=== PATIENT | female | born 1955 | race Caucasian/White ===

== ENCOUNTER 2022-04-01 08:28 | Inpatient (IN) | payer OTHER ==
[2022-03-26 09:56] LABS: BASOPHILS # (AUTO) 0.1 X10'3 (0-0.2); BASOPHILS % (AUTO) 0.7 % (0-1); EOSINOPHILS # (AUTO) 0.1 X10'3 (0-0.9); EOSINOPHILS % (AUTO) 1.6 % (0-6); LYMPHOCYTES % (AUTO) 25.5 % (21-51); MEAN CORPUSCULAR HGB CONC 33.7 g/dL (33.0-36.5); MEAN CORPUSCULAR VOLUME 88.9 FL (78-98); MEAN PLATELET VOLUME 7.1 FL (7.4-10.4); MONOCYTES # (AUTO) 0.5 X10'3 (0-0.9); MONOCYTES % (AUTO) 6.6 % (2-12); NEUTROPHILS # (AUTO) 5.2 X10'3 (1.8-7.7); NEUTROPHILS % (AUTO) 65.6 % (42-75); PRE OP HEMATOCRIT 41.6 % (35.0-45.0); PRE OP PLATELET COUNT 316 X10'3 (140-440); RED BLOOD COUNT 4.68 X10'6 (4.20-5.60); RED CELL DISTRIBUTION WIDTH 13.6 % (11.5-14.5)
[2022-03-26 10:29] LABS: ALBUMIN 3.9 G/DL (3.4-5.0); ALKALINE PHOSPHATASE 67 IU/L (46-116); BLOOD UREA NITROGEN 15 MG/DL (7-18); BUN/CREATININE RATIO 16.3 (6.6-38.0); CALCIUM 8.9 MG/DL (8.5-10.1); CHLORIDE 106 MMOL/L (99-107); CREATININE 0.92 MG/DL (0.40-0.90); PRE OP ALT 30 U/L (30-65); PRE OP ANION GAP 11 (8-16); PRE OP AST 23 U/L (10-37); PRE OP BILIRUB, TOTAL 0.3 MG/DL (0.0-1.0); PRE OP GLUCOSE 92 MG/DL (70-104); PRE OP POTASSIUM 4.4 MMOL/L (3.4-5.1); PRE OP SODIUM 140 MMOL/L (135-145); TOTAL PROTEIN 7.7 G/DL (6.4-8.2); eGFR 61 ML/MIN
[2022-04-01] VITALS (21 sets, daily range): BP systolic 90–121; BP diastolic 45–81
[~2022-04-01] VITALS: Ht 162.6 cm; Wt 96.7 kg
[~2022-04-01 08:28] MED LIST: CHOL400T14 PO; CYAN500T71 PO; LEVO100T9 PO; acetaminophen 325mg tablet PO ONE; ceFAZolin inj. 2,000 MG in dextrose 5%-water 100 ML IV ONE; celeCOXIB 100mg capsule PO ONE; famotidine 20mg tablet PO ONE; gabapentin 300mg capsule PO ONE; metoclopramide 5 mg/ml inj IV ONE; oxyCODONE SR 10mg (sust. release) tab -2 tabs (20mg) PO ONE; oxyCODONE SR 10mg (sust. release) tab PO ONE; tranexamic acid inj. 1,000 MG in normal saline 100ml IV soln 90 ML IV ONE; vancomycin 1,500 MG in NS 300ml IV soln IV ONE
--- NOTE | 2022-04-01 08:30 | NUR ---
PT CSM INTACT BILATERALLY, + PULSES, PT ABLE TO COMPLETE SHOWERS, NO OINTMENT REQUIRED, ABLE TO VIEW INTERNET ORTHO INFO.
[2022-04-01] MEDS: ringers solution, lacted 1,000 ML IV SCH ×2 (08:52→13:35)
[2022-04-01] MEDS ORDERED: MIDAZolam 1 MG/ML 5ML VIAL ONE (09:04)
[2022-04-01] MEDS ORDERED: propofol inj 0 ML IV ONE (09:04)
[2022-04-01] MEDS ORDERED: fentaNYL/PF 50MCG/1 ML 2ML syringe ONE (09:04)
[2022-04-01] MEDS ORDERED: diphenhydrAMINE 25mg capsule PO PRN ×2 (09:20)
[2022-04-01] MEDS ORDERED: magnesium hydroxide 30ml (MOM) UD suspension PO PRN (09:20)
[2022-04-01] MEDS ORDERED: HYDROmorphone inj. 0.5 MG/0.5 ML DISP.SYRIN IV PRN (09:20)
[2022-04-01] MEDS ORDERED: HYDROmorphone 1 mg/ml syringe IV PRN (09:20)
[2022-04-01] MEDS ORDERED: acetaminophen 325mg tablet PO PRN (09:20)
[2022-04-01] MEDS ORDERED: naloxone 0.4 mg/ml inj IV PRN (09:20)
[2022-04-01] MEDS ORDERED: bisacodyl 10mg suppository rectal RC PRN (09:20)
[2022-04-01] MEDS ORDERED: ROPIVAcaine 0.5% (5mg/ml) 30ml vial ONE (09:56)
[2022-04-01] MEDS ORDERED: meperidine/PF 25mg/ml syringe IV PRN ×3 (10:05)
[2022-04-01] MEDS ORDERED: ROPIVAcaine 0.2%/PF PUMP/bolus 545 ML ADDCANAL SCH (10:05)
[2022-04-01] MEDS ORDERED: morphine 4 MG/ML inj SYRINge IV PRN (10:05)
[2022-04-01] MEDS ORDERED: morphine 2 MG/ML inj. syringe IV PRN (10:05)
[2022-04-01] MEDS ORDERED: ROPIVAcaine 0.2% (10 MG/5 ML) BOLUS INJECTION ADDCANAL PRN (10:05)
[2022-04-01] MEDS ORDERED: ringers solution, lacted 1,000 ML IV SCH (10:05)
[2022-04-01] MEDS ORDERED: ondansetron/PF 4mg/2ml inj IV PRN (10:05)
[2022-04-01] MEDS ORDERED: proCHLORperazine 10 MG/2 ml inj IV PRN (10:05)
[2022-04-01] MEDS ORDERED: ondansetron/PF 4mg/2ml inj ONE (10:12)
[2022-04-01] MEDS ORDERED: cloNIDine hcl/PF 100mcg/ml inj IJ ONE (10:12)
[2022-04-01] MEDS ORDERED: epiNEPHrine 1 mg/ml inj IM ONE (10:13)
[2022-04-01] MEDS ORDERED: ketorolac trometh. 30mg/ml inj. IM ONE (10:14)
[2022-04-01] MEDS ORDERED: vancomycin 1,000mg inj IVT ONE (10:16)
--- NOTE | 2022-04-01 11:09 | NUR ---
Received from OR via BED, accompanied by Anesthesiologist and report given by Anesthesiologist. PATIENT WAKING UP, NO S/S OF PAIN, V/S WNL, SCD ON, 18G TO LOLI PIEDRA drsg to RIGHT KNEE CDI with ON Q BALL AT 2ML/HR. Addendum: 04/01/22 at 1649 by Denilson El RN THIS PREVIOUS NOTE IS INACCURATE AND PLEASE IGNORE IT.
--- NOTE | 2022-04-01 11:09 | NUR ---
Received from OR via BED, accompanied by Anesthesiologist and report given by DR. PHELPS Anesthesiologist. PATIENT WAKING UP, NO S/S OF PAIN, V/S WNL, SCD ON, 20G TO LOLI PIEDRA drsg to LEFT KNEE CDI. Addendum: 04/01/22 at 1137 by Denilson El RN Amended: Links added.
[2022-04-01] MEDS ORDERED: calcium carbonate 500mg chew tablet PO ONE (12:30)
--- NOTE | 2022-04-01 12:39 | NUR ---
PATIENT HAS MET ALL CRITERIA FOR TRANSFER TO ORTHO FLOOR. VSS. DRESSINGS INTACT. BED LOW, CALL LIGHT PRESENT AND 2 RAILS UP. RN PRESENT TO ACCEPT CARE OF PATIENT AND REPORT HAS BEEN CALLED. ALL QUESTIONS ANSWERED TO ACCEPTING RN. Addendum: 04/01/22 at 1245 by Denilson El RN Amended: Links added.
--- NOTE | 2022-04-01 12:45 | NUR ---
Received patient to room 4012B via bed accompanied by x2 transport analyst. Patient alert and oriented in no apparent acute distress and denies pain or discomfort at this time. Patient has left knee wrap on with cool powder pack in place. LOLI dressing CDI. ONQ ball @ 2ml/hr with dressing cdi. Patient educated on use of ONQ ball. Patient oriented to room and call light. Call light placed within patient's reach, x2 bed rails up, bed low and locked, spouse at bedside. Post op vitals initiated and WNL. Will continue to monitor.
[2022-04-01] MEDS: gabapentin 300mg capsule PO SCH ×2 (13:06→20:15)
[2022-04-01] MEDS: oxyCODONE/APAP 10/325mg tablet PO PRN ×2 (13:56→19:16)
[2022-04-01] MEDS: cefazolin/dext.iso 2gm/100ml 100 ML IV SCH ×2 (15:22→23:48)
[2022-04-01] MEDS ORDERED: tranexamic acid inj. 1,000 MG in normal saline 100ml IV soln 90 ML IV ONE (16:00)
[2022-04-01] MEDS: potassium cl 20mEq in 1/2 NS 1,000 ML IV SCH ×2 (17:17→17:20)
--- NOTE | 2022-04-01 18:35 | NUR ---
Patient in room ORTHO 4012. I have received report from HAKEEM Avila and had the opportunity to ask questions and assume patient care.
--- NOTE | 2022-04-01 18:42 | NUR ---
Problems reprioritized. Patient report given, questions answered & plan of care reviewed with HAKEEM Woo.
[2022-04-01] MEDS ORDERED: VANCOMYCIN 1,500MG inj. 1,500 MG in dextrose 5% water 500ml 300 ML IV ONE (20:00)
[2022-04-01] MEDS: ascorbic acid 500mg tablet PO SCH (20:16)
[2022-04-01] MEDS ORDERED: sennosides 8.6mg tablet PO SCH (21:00)
[2022-04-02] MEDS: oxyCODONE/APAP 10/325mg tablet PO PRN ×4 (00:12→08:38)
[2022-04-02] MEDS: ondansetron/PF 4mg/2ml inj IV PRN ×2 (00:24→08:38)
[2022-04-02] MEDS: potassium cl 20mEq in 1/2 NS 1,000 ML IV SCH ×2 (01:20→09:20)
[2022-04-02 02:00] VITALS: BP 109/58
--- NOTE | 2022-04-02 06:15 | NUR ---
Problems reprioritized. Patient report given, questions answered & plan of care reviewed with HAKEEM Griffin.
--- NOTE | 2022-04-02 06:29 | NUR ---
Report received from HAKEEM Woo
[2022-04-02 06:46] VITALS: BP 111/64
[2022-04-02] MEDS: gabapentin 300mg capsule PO SCH (07:08)
[2022-04-02] MEDS: ascorbic acid 500mg tablet PO SCH (07:08)
[2022-04-02] MEDS ORDERED: benzocaine/menthol oral lozeng 1 EACH BOX MM PRN (07:30)
[2022-04-02 07:42] LABS: BASOPHILS % (AUTO) 0.1 % (0-1); EOSINOPHILS % (AUTO) 0.3 % (0-6); HEMATOCRIT 34.4 % (35.0-45.0); HEMOGLOBIN 11.6 g/dl (12.0-16.0); LYMPHOCYTES # (AUTO) 0.7 X10'3 (1.1-4.8); MEAN CORPUSCULAR HEMOGLOBIN 30.5 PG (27.0-31.0); MEAN CORPUSCULAR HGB CONC 33.7 g/dL (33.0-36.5); MEAN CORPUSCULAR VOLUME 90.4 FL (78-98); MEAN PLATELET VOLUME 7.9 FL (7.4-10.4); MONOCYTES # (AUTO) 0.6 X10'3 (0-0.9); NEUTROPHILS # (AUTO) 9.1 X10'3 (1.8-7.7); NEUTROPHILS % (AUTO) 86.6 % (42-75); PLATELET COUNT 239 X10'3 (140-440); RED BLOOD COUNT 3.81 X10'6 (4.20-5.60); RED CELL DISTRIBUTION WIDTH 13.7 % (11.5-14.5); WHITE BLOOD COUNT 10.5 X10'3 (4.5-11.0)
[2022-04-02] MEDS ORDERED: levoTHYROXINE 100mcg tablet PO SCH (08:00)
[2022-04-02] MEDS ORDERED: multivitamins, therapeutics tablet PO SCH (08:00)
[2022-04-02 08:12] LABS: ANION GAP 9 (8-16); CHLORIDE 103 MMOL/L (99-107); POTASSIUM 4.5 MMOL/L (3.5-5.1); SODIUM 131 MMOL/L (135-145); TOTAL CARBON DIOXIDE 19.4 MMOL/L (24-32)
[2022-04-02] MEDS ORDERED: aspirin 325mg tablet PO SCH (08:30)
--- NOTE | 2022-04-02 09:53 | NUR ---
Joint surgery consult: Pt s/p L knee surgery this admit per EMR. Pt sleeping/snoring during RD visit; written high protein ed w/ RD contact information left at bedside. Addendum: 04/02/22 at [address] Amended: Links added.
--- NOTE | 2022-04-02 10:59 | NUR ---
Patient discharged to home via wheelchair to private vehicle with , all discharge instructions given to both patient and and they verbalized understanding. 20 gauge iv removed from left hand, cannula intact no complications. All medications and follow up pre arranged prior to surgery and patient will be having a front wheel walker delivered to her home.
[2022-04-02] MEDS ORDERED: celeCOXIB 100mg capsule PO SCH (20:00)
== END 2022-04-02 11:00 | disposition home or self-care (01) | DRG 470 ==
LOC: PAS 08:28 → ORTHO 4S 09:23
PROVIDERS: ADMIT Orthopaedic Surgery; ATTEND Orthopaedic Surgery
PROC: 0SRD0J9 Replacement of Left Knee Joint with Synthetic Substitute, Cemented, Open Approach (ICD-10-PCS; principal; 2022-04-01 09:02)
DX: M17.12 Unilateral primary osteoarthritis, left knee (principal); Z79.899 Other long term (current) drug therapy
CPT/HCPCS: 36415; 73560; 80051; 80053; 82948; 84443; 85025; 86885; 86900; 86901; 87081; 97110; 97116; 97161; 97530; G0378; J0171; J0690; J0735; J1885; J2250; J2405; J2704; J2765; J2795; J3010; J3370; J3480; J3490; J7040; J7060; J7120

== ENCOUNTER 2023-04-05 22:51 | Emergency (ER) | payer MEDICARE, OTHER ==
[~2023-04-05] VITALS: Ht 162.6 cm; Wt 100.0 kg
[~2023-04-05 22:51] MED LIST changes: -acetaminophen 325mg tablet PO ONE; -ceFAZolin inj. 2,000 MG in dextrose 5%-water 100 ML IV ONE; -celeCOXIB 100mg capsule PO ONE; -famotidine 20mg tablet PO ONE; -gabapentin 300mg capsule PO ONE; -metoclopramide 5 mg/ml inj IV ONE; -oxyCODONE SR 10mg (sust. release) tab -2 tabs (20mg) PO ONE; -oxyCODONE SR 10mg (sust. release) tab PO ONE; -tranexamic acid inj. 1,000 MG in normal saline 100ml IV soln 90 ML IV ONE; -vancomycin 1,500 MG in NS 300ml IV soln IV ONE
[2023-04-05 22:52] VITALS: BP 162/89
[2023-04-05] MEDS ORDERED: morphine 4 MG/ML inj SYRINge IM ONE (23:15)
[2023-04-05] MEDS ORDERED: ondansetron 4mg rapidly disintigrating tab PO ONE (23:15)
[2023-04-05] MEDS ORDERED: IBUP-1985 PO (23:20)
[2023-04-05] MEDS ORDERED: HYDR-3965 PO (23:20)
== END 2023-04-06 00:18 | disposition home or self-care (01) ==
LOC: ER 22:51
DX: S42.291A Other displaced fracture of upper end of right humerus, initial encounter for closed fracture (principal); W22.8XXA Striking against or struck by other objects, initial encounter; Y93.89 Activity, other specified; Y92.89 Other specified places as the place of occurrence of the external cause; Y99.8 Other external cause status; Z79.899 Other long term (current) drug therapy
CPT/HCPCS: 73030; 73100; 96372; 99284; J2270